=== PATIENT | male | born 1960 | race Caucasian/White ===

== ENCOUNTER → 2017-01-11 | Day surgery (SDC) | payer OTHER ==
[2017-01-10 11:24] VITALS: Ht 175.3 cm; Wt 118.2 kg
[~2017-01-11] VITALS: Ht 175.3 cm; Wt 118.2 kg
[~2017-01-11] MED LIST: ALBUAER2 INH; ARMO150T4 PO; ASTN; ATROPINE SULFATE 0.1 MG/ML 5ML SYR IV PRN; BUPIVACAINE 0.5 % 5 MG/1 ML PF 10ML VIAL ONE; CEFAZOLIN 1000MG/55 ML D5W IV SCH; CEFAZOLIN IV 2,000 MG/60 ML D5W IV ONE; EpHEDrine SULFATE INJ 50 MG/ML AMP IV PRN; FENTANYL CITRATE INJ 50 MCG/1 ML 2 ML VIAL IV PRN; FENTANYL CITRATE INJ 50 MCG/1 ML 2 ML VIAL ONE; FLUT0.15 NAE; HYDR-5688 PO; HYZ/50125 PO; IPRASOL4 INH; LACTATED RINGER'S 1000ML 1,000 ML IV SCH; LIDOCAINE HCL 1% 20 ML VIAL ONE; MIDAZOLAM HCL 1 MG/ML 2ML VIAL ONE; MOME100A INH; MONT1TAB3 PO; ONDANSETRON INJ 2 MG/ML 2 ML VIAL IV PRN; ONDANSETRON INJ 2 MG/ML 2 ML VIAL ONE; OXYCODONE/ACETAMINOPHEN 5-325 TAB PO PRN; PANT40TA PO; SODIUM CHLORIDE 0.9% 1000ML 1,000 ML IV SCH
--- NOTE | 2017-01-11 07:22 | History & Physical Bridge - [place] ---
H&P Re-Evaluation Bridge Note: I have examined the patient, reviewed the History & Physical and in the interval since the performance of the History & Physical I have noted the following changes of clinical significance: No changes noted
--- NOTE | 2017-01-11 08:07 | [facility] Post Operative Brief Note ---
Immediate Operative Summary Operative Date Jan 11, 2017. Pre-Operative Diagnosis Left Carpal Tunnel Syndrome Post-Operative Diagnosis Same Procedure(s) Performed Left Carpal Tunnel Release Surgeon Dr. Radha Braga Security Trainer Surgeon(s) Laila Beasley PA-C Estimated Blood Loss 0 Findings ABOVE Specimens None Anesthesia LOCAL IV SEDATION Complication(s) None Disposition
--- NOTE | 2017-01-11 08:09 | Anesthesia Progress Nt - [facility] ---
Anesthesia Post Op Note Date & Time Jan 11, 2017 at 08:09 Vital Signs Pain Intensity: 0 Vital Signs Past 12 Hours Date Time Temp Pulse Resp B/P Pulse Ox O2 Delivery O2 Flow Rate FiO2 01/11/17 06:57 36.6 68 16 152/87 95 Room Air Notes Mental Status: alert / awake / arousable, participated in evaluation Pt Amnestic to Procedure: Yes Nausea / Vomiting: adequately controlled Pain: adequately controlled Airway Patency, RR, SpO2: stable & adequate BP & HR: stable & adequate Hydration State: stable & adequate Anesthetic Complications: no major complications apparent
[2017-01-11 08:10] VITALS: TEMP 36.5
--- NOTE | 2017-01-11 08:11 | Discharge Instructions-SurgCtr ---
Discharge Instructions Date of Service Jan 11, 2017. Visit Reason for Visit: Left Carpal Tunnel Syndrome Discharge Discharge Diagnosis / Problem: SAME ABOVE Discharge Goals Goal(s): Decrease discomfort, Improve function Activity Recommendations Activity Limitations: as noted below Lifting Limitations: until after follow-up appointment Exercise/Sports Limitations: until after follow-up appointment Shower/Bathe: keep incision dry Anesthesia . Post Anesthesia Instructions: If you have had General Anesthesia or IV Sedation: * Do not drive today. * Resume driving when surgeon permits. * Do not make important decisions or sign legal documents today. * Call surgeon for: 1. Temperature elevations greater than 101 degrees F. 2. Uncontrollable pain. 3. Excessive bleeding. 4. Persistent nausea and vomiting. 5. Medication intolerance (nausea, vomiting or rash). * For nausea and vomiting use only clear liquids such as: tea, soda, bouillon until nausea subsides, then gradually increase diet as tolerated. * If you have any concerns or questions, call your surgeon's office. If physician is unavailable and it is an emergency, call 911 or go to the nearest emergency room. . Instructions / Follow-Up Instructions / Follow-Up MEDICATIONS: * Resume previous medications unless instructed otherwise by your surgeon. * Always take pain medication on a full stomach or with food to avoid upset stomach. * Do not drink alcohol or drive while taking narcotics. * Ibuprofen or Tylenol may be taken if narcotic not needed. SPECIAL CARE INSTRUCTIONS: __ None _X_ Keep extremity elevated and iced x 48 hours; apply ice 20-30 minutes 8-10 times/day. May remove at night. __ Sling __24 hrs/day __ Remove at night __ Shoulder Immobilizer __ 24 hrs/day __ Remove at night _X_ Dressing _X_ Maintain until seen in office, may shower with plastic over site __ Remove dressings in 24-48 hours and then may shower __ Cover incisions with band-aids after showering __ Do not remove steri-strips Call physician if chills or temperature rises above 102 degrees or pain unrelieved by prescribed pain medications at . . Diet Recommendations Home Diet: resume previous diet Procedures Procedures Performed: Left Carpal Tunnel Release Pending Studies Studies pending at discharge: no Medical Emergencies . Who to Call and When: Medical Emergencies: If at any time you feel your situation is an emergency, please call 911 immediately. . Non-Emergent Contact Non-Emergency issues call your: Primary Care Provider . . "Provider Documentation" section prepared by Rob Beasley.
[2017-01-11 08:34] VITALS: BP 138/89; PULSE 67; O2SAT 95
--- NOTE | 2017-01-11 08:36 | OPERATIVE REPORT ---
DATE OF OPERATION: 01/11/2017 PREOPERATIVE DIAGNOSIS: Left carpal tunnel syndrome. POSTOPERATIVE DIAGNOSIS: Same. PROCEDURE: Decompression median nerve release transverse carpal ligament, left wrist. SURGEON: Hesham Braga MD INTERNAL CONTROL SPECIALIST: Rob Beasley PA-C ANESTHESIOLOGIST: Raymond Reis MD ANESTHESIA: Local with IV sedation. DRAINS: None. COMPLICATIONS: None. CONDITION: The patient tolerated the procedure well and returned to recovery room in apparent satisfactory condition. INDICATIONS FOR SURGERY: Maverick is a 56-year-old male who has had increasing pain, numbness and tingling in the left hand consistent with the carpal tunnel syndrome. Went over treatment options and elected to go ahead and proceed with surgery. Procedure, expected outcomes and side effects were all explained in detail. DESCRIPTION OF PROCEDURE: The patient was taken to the OR at which time he was placed supine on the operating table. The left hand was prepped and draped in the usual sterile fashion for this surgery. The anticipated incision site was infiltrated with 1% Xylocaine. A forearm tourniquet was placed on the arm and tourniquet was placed up to 250 mmHg. Incision was made vertically over the transverse carpal tunnel ligament. Dissection was done down until the palmar fascia was identified and divided with a 15-blade. The transverse carpal ligament was identified and also divided with the 15-blade and upbiting scissors. A small portion of the forearm fascia was divided also. Electrocautery was used to control any areas of bleeding. The nerve was freed up from any scar tissue and adequately decompressed. The wound then was copiously irrigated. It was closed then with interrupted 4-0 nylon sutures. Marcaine without Epinephrine was placed in the skin edges. It was closed in a layered fashion. We placed a sterile dressing of Xeroform, 4 x 4, volar splint, and an Junior bandage. DISPOSITION: The patient was returned back to the recovery room in apparent satisfactory condition. I attest to the content of the Intraoperative Record and any orders documented therein. Any exceptio ns are noted below.
== END | disposition home or self-care (01) ==
LOC: X.SURG 06:36
PROVIDERS: ATTEND Orthopaedic Surgery
DX: G56.02 Carpal tunnel syndrome, left upper limb (principal); I10 Essential (primary) hypertension; J45.909 Unspecified asthma, uncomplicated

== ENCOUNTER 2017-09-12 13:06 | Inpatient (IN) | payer OTHER ==
[2017-09-12] VITALS (8 sets, daily range): BP systolic 146–150; BP diastolic 69–84; PULSE 74–102; TEMP 36.9–37.8; O2SAT 92–94; Ht 175.3 cm; Wt 116.6 kg
[~2017-09-12] VITALS: Ht 175.3 cm; Wt 116.6 kg
[~2017-09-12 13:06] MED LIST changes: -ATROPINE SULFATE 0.1 MG/ML 5ML SYR IV PRN; -BUPIVACAINE 0.5 % 5 MG/1 ML PF 10ML VIAL ONE; -CEFAZOLIN 1000MG/55 ML D5W IV SCH; -CEFAZOLIN IV 2,000 MG/60 ML D5W IV ONE; -EpHEDrine SULFATE INJ 50 MG/ML AMP IV PRN; -FENTANYL CITRATE INJ 50 MCG/1 ML 2 ML VIAL IV PRN; -FENTANYL CITRATE INJ 50 MCG/1 ML 2 ML VIAL ONE; -HYDR-5688 PO; -LACTATED RINGER'S 1000ML 1,000 ML IV SCH; -LIDOCAINE HCL 1% 20 ML VIAL ONE; -MIDAZOLAM HCL 1 MG/ML 2ML VIAL ONE; -ONDANSETRON INJ 2 MG/ML 2 ML VIAL IV PRN; -ONDANSETRON INJ 2 MG/ML 2 ML VIAL ONE; -OXYCODONE/ACETAMINOPHEN 5-325 TAB PO PRN; -SODIUM CHLORIDE 0.9% 1000ML 1,000 ML IV SCH
[2017-09-12] MEDS ORDERED: ACETAMINOPHEN 325 MG TAB PO PRN (13:30)
[2017-09-12] MEDS ORDERED: ONDANSETRON INJ 2 MG/ML 2 ML VIAL IV PRN (13:30)
[2017-09-12] MEDS ORDERED: POLYETHYLENE (MIRALAX) 17 GM PACK PO PRN (13:30)
[2017-09-12] MEDS ORDERED: PRD20 PO (14:08)
[2017-09-12] MEDS ORDERED: ALBUT/IPRATROP 3MG/0.5MG NEB 3 ML VIAL INH PRN (15:00)
[2017-09-12] MEDS: CEFTRIAXONE SOD INJ 1 GM in DEXTROSE 5% ADD-VANTAGE 50ML 50 ML IV SCH (15:10)
[2017-09-12] MEDS: SODIUM CHLORIDE 0.9% 1000ML 1,000 ML IV SCH (15:10)
--- NOTE | 2017-09-12 15:20 | History and Physical ---
History & Physical Date & Time of Service: Sep 12, 2017 at 14:10 Chief Complaint: Pneumonia Primary Care Physician: Hesham Wright M.D. History of Present Illness Source: patient, spouse, clinic records Pt is 57 y/o M with PMH asthma, ENRICO, HTN, thoracic aortic aneurysm presents as direct admission from [facility] pulmonology office -Dr Valle with c /o cough, SOB, pneumonia. Pt states 2 weeks ago started with rhinorrhea, nasal congestion and cough and was treated with Augmentin and prednisone 20mg daily. Pt states still symptomatic with cough worsening and 2 days ago seen and started on zithromax and prednisone 40mg x 5 days. Pt states last night started with tactile fever, CRUM, myalgias, arthralgias and decreased appetite. This am temp 101F. Cough productive clear. Deep breathing worsens cough and coughing causes tight sensation in chest, only with coughing. Feels SOB with exertion past couple of days. Did not have influenza vaccine this season. Reports co- workers with coughs and fevers also. He reports past 3 days having to use his duoneb nebulizer 4 times a day which is unusual for him. Denies N/V/D/C, dizziness, syncope, vision changes, neck pain,orthopnea, palpitations, choking, otalgia, abdominal pain, paresthesias, weakness, extremity weakness, extremity edema, rashes, urinary symptoms. In office today pt had CXR IMPRESSION: linear bibasilar airspace opacification, atelectasis vs infiltrate. Short interval f/u to document resolution suggested. CBC: WBC: 16.03, RBC: 5.31, HGB: 16.2, HCT: 48, NEUT: 89, LYMPH: 3.3 BMP: BUN: 13, CR: 1.0, GFR: >60, Na: 135, K: 3.8, Cl: 95, CO2: 25, anion gap: 15 , glucose: 140, Ca: 9.1 Rapid Influenza swab: +influenza A Pending blood cultures Past Medical/Surgical History Medical Problems: (1) Asthma Status: Chronic (2) Chronic fatigue syndrome Status: Chronic (3) History of thoracoabdominal aortic aneurysm (TAAA) Permanent Comment: hx thoracic aortic aneurysm - 4cm, stable Status: Chronic (4) HTN (hypertension) Status: Chronic (5) ENRICO (obstructive sleep apnea) Status: Chronic Surgical Problems: (1) H/O knee surgery Status: Chronic (2) History of dental surgery Status: Chronic (3) Hx of cholecystectomy Status: Resolved (4) Hx of LASIK Status: Chronic Family History Diabetes mellitus FH: COPD (chronic obstructive pulmonary disease) FH: heart disease Social History Smoking Status: Never Smoker Smokeless Tobacco Use: No Alcohol Use: 3 beers a week Drug Use: none Marital Status: Housing status: lives with significant other Multi-Drug Resistant Organisms History of MDRO: No Allergies Coded Allergies: Morphine (Verified Allergy, Mild, ITCHY, 01/11/17) Home Medications Scheduled Armodafinil (Nuvigil), 150 MG PO QAM Azelastine Hcl (Astelin Nasal [place]), 1 SPRAYS NA BID Fluticasone Propionate (Nasal) (Flonase Allergy Relief), 1 SPRAYS CHRIS DAILY Hctz/Losartan (Hyzaar 12.5MG/50MG), 1 TAB PO QAM Mometasone Furoate-Formoterol (Dulera 100/5 Mcg), 2 PUFFS INH BID Montelukast Sodium (Singulair), 10 MG PO HS Pantoprazole (Protonix), 40 MG PO QAM Prednisone (Prednisone), 2 TAB PO DAILY Scheduled PRN Albuterol (Ventolin), 2 PUFFS INH QID PRN for SOB/Wheezing Ipratropium-Albuterol (Duoneb), 1 TREATMENT INH Q4H PRN for Shortness of Breath Review of Systems Constitutional: + problem reported (see HPI), No weight loss Eyes: No worsening of vision, No eye pain, No redness, No discharge, No diplopia ENT: No unusual epistaxis Respiratory: + problem reported (see HPI), No hemoptysis Cardiovascular: No orthopnea, No PND, No edema, No claudication, No palpitations Abdomen: No pain, No nausea, No vomiting, No diarrhea, No constipation, No GI bleeding Musculoskeletal: + joint pain (see HPI) Genitourinary - Male: No hematuria, No dysuria, No urinary frequency, No urinary urgency Neurologic: No paralysis, No weakness, No numbness/tingling, No vertigo Psychiatric: No depression symptoms, No anxiety Endocrine: No excessive thirst, No excessive urination Hematologic / Lymphatic: No abnormal bleeding/bruising, No clotting problems Integumentary: No rash, No itch Physical Exam Vital Signs Date Time Temp Pulse Resp B/P (MAP) Pulse Ox O2 Delivery O2 Flow Rate FiO2 09/12/17 13:42 36.9 100 20 150/82 93 Room Air General Appearance: WD/WN, no apparent distress, + pertinent finding (mild ill appearance, non-toxic appearance) Head: normocephalic, atraumatic Eyes: normal inspection, sclerae normal ENT: hearing grossly normal, pharynx normal, + pertinent finding (slightly dry mucous membranes) Neck: supple, no JVD, trachea midline Respiratory/Chest: chest non-tender, no respiratory distress, no accessory muscle use, + decreased breath sounds (throughout, slight crackle noted at left base, frequent coughing througout lung exam. ) Cardiovascular: regular rate, rhythm, no murmur Abdomen/GI: normal bowel sounds, non tender, soft Extremities/Musculoskelatal: normal inspection, no calf tenderness, normal capillary refill, no pedal edema, normal range of motion, non-tender Neurologic/Psych: alert, normal mood/affect, oriented x 3 Skin: normal color, warm/dry, no rash Diagnostics Laboratory Results CBC: WBC: 16.03, RBC: 5.31, HGB: 16.2, HCT: 48, NEUT: 89, LYMPH: 3.3 BMP: BUN: 13, CR: 1.0, GFR: >60, Na: 135, K: 3.8, Cl: 95, CO2: 25, anion gap: 15 , glucose: 140, Ca: 9.1 Rapid Influenza swab: +influenza A Pending blood cultures Diagnostic Radiology CXR IMPRESSION: linear bibasilar airspace opacification, atelectasis vs infiltrate. Short interval f/u to document resolution suggested. EKG EKG: NSR, rate 97, no ST elevation noted Impression Assessment and Plan PNEUMONIA/INFLUENZA Pt has been having cough, congestion x 2 weeks treated out pt with Augmentin, then Zithromax past 2 days and prednisone. Fever, myalgias started last evening. Increased SOB and cough past several days. Pt with positive rapid influenza swab for A today in clinic. Pt with WBC: 16 today in clinic. CXR: bibasilar airspace opacification. -Pending blood cultures -MRSA swab -Duonebs -Rocephin IV, Doxycycline IV -supplemental O2 per protocol -Solu-medrol 40mg BID -Tamiflu -NSS 100ml/hr -Continue Dulera -Continue Singulair -Continue Flonase, azelastine -repeat cbc, prp in am -repeat CXR in am HTN continue losartan/HCTZ GERD -continue PPI SLEEP APNEA -CPAP HS per home settings DVT PROPHYLAXIS -lovenox SQ DISPOSITION -admit Tele -Full Code -Follows with Dr Wright for routine care Pt was seen with Dr Potts. See addendum Agree with above H and P. Briefly 57M with hx of ENRICO , HTN with ongoing symptoms since about 2 weeks of rhinorrhea nasal congestion and was treated by prednisone and Augmentin and then azithromycin but last night spiked temp and had myalgias and sob on exertion and went to see pulmonary today and cxr showed bibasilar opacities and influenza positive and was directly admitted. Currently hemodynamics stable. Has cough. Body aches.No chest pain. p/e Ge Not in distress Cvs s1 and s2 heard regular no murmurs Rs cta b/l bibasilar crackles present Abd benign Pivot End Polisher non focal Ext no edema a/p Sob Influenza A positive bibasilar pneumonia stated on Tamiflu iv Rocephin iv doxy fluids nebs and close monitor Asthma ex iv steroids and nebs abx as above Level of Care Telemetry Advanced Directives Existing Living Will: No Existing Power of Cue Selector: No Resuscitation Status FULL RESUSCITATION VTE Prophylaxis VTE Risk Assessment Done? Y/N: Yes Risk Level: Moderate Given or contraindicated: Enoxaparin (Lovenox)SQ Additional Copies To Hesham Wright M.D.
[2017-09-12 15:31] LABS: INR 1.1 (0.9-1.1); PARTIAL THROMBOPLASTIN RATIO 1.1; PROTHROMBIN TIME (PATIENT) 11.1 SECONDS (9.0-12.0)
[2017-09-12] MEDS: ALBUT/IPRATROP 3MG/0.5MG NEB 3 ML VIAL INH SCH ×2 (15:48→19:49)
[2017-09-12 16:53] LABS: CREATININE 1.3 mg/dl (0.60-1.40)
[2017-09-12] MEDS: ENOXAPARIN 40 MG/0.4 ML SYR SC SCH (18:00)
[2017-09-12] MEDS ORDERED: AZELASTINE HCL SCH (21:00)
[2017-09-12] MEDS ORDERED: MOMETASONE FUROATE FORMOTEROL INH SCH (21:00)
[2017-09-12] MEDS: DOXYCYCLINE IV 100 MG in DEXTROSE 5% 100ML 100 ML IV SCH (22:05)
[2017-09-12] MEDS: METHYLPREDNISOLONE IV 40 MG in SYRINGE 0 ML IV SCH (22:05)
[2017-09-12] MEDS: OSELTAMIVIR PHOSPHATE 75 MG CAP PO SCH (22:06)
[2017-09-12] MEDS: MONTELUKAST SOD 10 MG TAB PO SCH (22:10)
[2017-09-13] VITALS (13 sets, daily range): BP systolic 122–148; BP diastolic 56–86; PULSE 68–99; TEMP 36.5–38.1; O2SAT 90–96
[2017-09-13] MEDS: SODIUM CHLORIDE 0.9% 1000ML 1,000 ML IV SCH
[2017-09-13 05:29] LABS: BASO % 0.1 %; BASO ABS # 0.01 K/uL (0-0.2); COMPLETE YES; HEMATOCRIT 44.1 % (42-52); IG% 0.3 %; LYMPH % 7.3 %; LYMPH ABS # 0.86 K/uL (1.2-3.4); MEAN CELL VOLUME 91.1 fL (80-100); MEAN CORPUSCULAR HEMOGLOBIN 31.2 pg (25-34); MEAN CORPUSCULAR HGB CONC 34.2 g/dl (32-36); MEAN PLATELET VOLUME 10.4 fL (7.4-10.4); MONO % 2.5 %; NEUT % 89.8 %; PLATELET COUNT 167 K/uL (130-400); RED BLOOD COUNT 4.84 M/uL (4.7-6.1); WHITE BLOOD COUNT 11.73 K/uL (4.8-10.8)
[2017-09-13 06:00] LABS: BUN/CREATININE RATIO 14.3 (10-20); CALCIUM 8.4 mg/dl (8.5-10.1); CREATININE 1.17 mg/dl (0.60-1.40)
--- NOTE | 2017-09-13 07:39 | DIAGNOSTIC IMAGING REPORT ---
CHEST 2 VIEWS ROUTINE HISTORY: Short of breath. COMPARISON: Chest 01/04/2016. FINDINGS: Old, healed right-sided rib fractures. No pneumothorax. The heart is top normal in size. This remains unchanged. Low lung volumes. The right lung is clear. Trace left pleural effusion and patchy left basilar densities. Cholecystectomy. IMPRESSION: 1. Left lower lobe airspace opacity. This likely represents a pneumonia. Recommend follow-up to ensure complete resolution. 2. Trace left pleural effusion. Electronically signed by: Mike Vences M.D. 09/13/2017 7:37 AM Dictated Date/Time: 09/13/2017 7:36 AM
[2017-09-13] MEDS: ALBUT/IPRATROP 3MG/0.5MG NEB 3 ML VIAL INH SCH ×4 (07:41→19:57)
[2017-09-13] MEDS: METHYLPREDNISOLONE IV 40 MG in SYRINGE 0 ML IV SCH ×2 (08:17→19:59)
[2017-09-13] MEDS: LOSARTAN/HCTZ 50-12.5 EA TAB PO SCH (08:17)
[2017-09-13] MEDS: PANTOprazole SOD 40 MG TAB PO SCH (08:17)
[2017-09-13] MEDS: OSELTAMIVIR PHOSPHATE 75 MG CAP PO SCH ×2 (08:18→19:59)
[2017-09-13] MEDS: FLUTICASONE PROPIONATE NA SPR 16 GM BTL NAE SCH (08:20)
[2017-09-13] MEDS: DOXYCYCLINE IV 100 MG in DEXTROSE 5% 100ML 100 ML IV SCH ×2 (08:20→20:24)
--- NOTE | 2017-09-13 10:18 | Progress Note ---
Medicine Progress Note Date & Time of Visit: Sep 13, 2017 at 10:01. Subjective Pt was seen and examined Sitting in chair comfortable with no distress Pt said that he feels much better He said that he continue to have some SOB Last fever was at midnight Denies any chest pain, palpitation and dizziness Objective Last 8 Hrs Date Time Temp Pulse Resp B/P (MAP) Pulse Ox O2 Delivery O2 Flow Rate FiO2 09/13/17 08:00 93 Room Air 3.0 09/13/17 07:41 81 16 93 Room Air 09/13/17 07:14 36.6 68 20 138/86 (103) 96 Nasal Cannula 09/13/17 04:20 BiPAP 09/13/17 03:50 36.7 75 18 148/80 (102) 94 3.0 Physical Exam: General- No acute distress Head- atraumatic Eyes- PERRL, EOMI ENT- oropharynx clear Neck- supple, no JVD Lungs- coarse BS Heart- regular rhythm Abdomen- normal bowel sounds, soft Extremities- no pretibial edema, no calf tenderness Neuro- alert, oriented x 3; PERRL, EOMI; no facial palsy Skin- warm & dry Laboratory Results: Last 24 Hours Test 09/12/17 15:07 09/12/17 16:11 09/13/17 04:49 Prothrombin Time 11.1 SECONDS Prothromb Time International Ratio 1.1 Activated Partial Thromboplast Time 28.3 SECONDS Partial Thromboplastin Ratio 1.1 Creatinine 1.30 mg/dl 1.17 mg/dl Est Creatinine Clear Calc Drug Dose 78.6 ml/min 87.3 ml/min Estimated GFR () 70.2 79.7 Estimated GFR (Non- 60.6 68.8 White Blood Count 11.73 K/uL Red Blood Count 4.84 M/uL Hemoglobin 15.1 g/dL Hematocrit 44.1 % Mean Corpuscular Volume 91.1 fL Mean Corpuscular Hemoglobin 31.2 pg Mean Corpuscular Hemoglobin Concent 34.2 g/dl Platelet Count 167 K/uL Mean Platelet Volume 10.4 fL Neutrophils (%) (Auto) 89.8 % Lymphocytes (%) (Auto) 7.3 % Monocytes (%) (Auto) 2.5 % Eosinophils (%) (Auto) 0.0 % Basophils (%) (Auto) 0.1 % Neutrophils # (Auto) 10.54 K/uL Lymphocytes # (Auto) 0.86 K/uL Monocytes # (Auto) 0.29 K/uL Eosinophils # (Auto) 0.00 K/uL Basophils # (Auto) 0.01 K/uL RDW Standard Deviation 45.5 fL RDW Coefficient of Variation 13.7 % Immature Granulocyte % (Auto) 0.3 % Immature Granulocyte # (Auto) 0.03 K/uL Sodium Level 133 mmol/L Potassium Level 4.0 mmol/L Chloride Level 99 mmol/L Carbon Dioxide Level 28 mmol/L Anion Gap 6.0 mmol/L Blood Urea Nitrogen 17 mg/dl BUN/Creatinine Ratio 14.3 Random Glucose 232 mg/dl Calcium Level 8.4 mg/dl Date/Time Source Procedure Growth Status 09/12/17 23:30 Nasal MRSA DNA Surveillance Screen - Final Specimen Negative for MRSA by DNA Probe Complete Assessment & Plan INFLUENZA Present with flu like symptoms such as cough/congestion fever and myalgias associated with SOB. Completed outpatient course of Augmentin, then was starting on Zithromax and prednisone. Positive rapid influenza A CXR showed left lower lobe airspace opacity Blood cx did not collect before abx Elevated WBC Last fever was at midnight Continue Tamiflu Pneumonia CXR showed left lower lobe airspace opacity On Rocephin IV and Doxycycline IV Continue supplement oxygen and Solu-medrol 40mg BID -Tamiflu Monitor CBC HTN continue losartan/HCTZ GERD -continue PPI SLEEP APNEA -CPAP HS per home settings DVT PROPHYLAXIS Lovenox SQ DISPOSITION Follows with Dr Wright for routine care Current Inpatient Medications: Current Inpatient Medications Medications (Trade) Dose Ordered Sig/Madi Route Start Time Stop Time Status Last Admin Dose Admin Acetaminophen (Tylenol Tab) 650 mg Q4H PRN PO 09/12/17 13:30 10/12/17 13:29 09/13/17 00:26 650 MG Ondansetron HCl (Zofran Inj) 4 mg Q6H PRN IV 09/12/17 13:30 10/12/17 13:29 Polyethylene (Miralax Powder Packet) 17 gm DAILY PRN PO 09/12/17 13:30 10/12/17 13:29 Albuterol/ Ipratropium (Duoneb) 3 ml QIDR INH 09/12/17 16:00 10/12/17 15:59 09/13/17 07:41 3 ML Ceftriaxone Sodium 1 gm/ Dextrose 50 ml @ 100 mls/hr Q24H IV 09/12/17 15:00 09/19/17 14:59 09/12/17 15:10 100 MLS/HR Doxycycline Hyclate 100 mg/ Dextrose 110 ml @ 50 mls/hr BID IV 09/12/17 21:00 09/19/17 20:59 09/13/17 08:20 50 MLS/HR Oseltamivir Phosphate (Tamiflu Cap) 75 mg BID PO 09/12/17 21:00 09/17/17 20:59 09/13/17 08:18 75 MG Enoxaparin Sodium (Lovenox Inj) 40 mg Q24H SC 09/12/17 18:00 10/12/17 17:59 09/12/17 18:00 40 MG Fluticasone Propionate (Flonase Nasal [place]) 1 sprays DAILY CHRIS 09/13/17 09:00 10/13/17 08:59 09/13/17 08:20 1 SPRAYS HCTZ/Losartan Potassium (Hyzaar 50-12.5 Tab) 1 tab QAM PO 09/13/17 09:00 10/13/17 08:59 09/13/17 08:17 1 TAB Montelukast Sodium (Singulair Tab) 10 mg HS PO 09/12/17 21:00 10/12/17 20:59 09/12/17 22:10 10 MG Pantoprazole Sodium (Protonix Tab) 40 mg QAM PO 09/13/17 09:00 10/13/17 08:59 09/13/17 08:17 40 MG Methylprednisolone Sodium Succinate 40 mg/Syringe 0.64 ml @ 1.5 mls/min Q12H IV 09/12/17 21:00 10/12/17 20:59 09/13/17 08:17 1.5 MLS/MIN Albuterol/ Ipratropium (Duoneb) 3 ml Q2H PRN INH 09/12/17 15:00 10/12/17 14:59 Miscellaneous Information (Order Awaiting Action) 1 ea BID N/A 09/12/17 21:00 10/12/17 20:59 Miscellaneous Information (Order Awaiting Action) 1 ea BID N/A 09/12/17 21:00 10/12/17 20:59
[2017-09-13] MEDS: CEFTRIAXONE SOD INJ 1 GM in DEXTROSE 5% ADD-VANTAGE 50ML 50 ML IV SCH (16:42)
[2017-09-13] MEDS: ENOXAPARIN 40 MG/0.4 ML SYR SC SCH (16:46)
[2017-09-13] MEDS: MONTELUKAST SOD 10 MG TAB PO SCH (20:00)
[2017-09-14] VITALS (8 sets, daily range): BP systolic 146–166; BP diastolic 88–97; PULSE 77–94; TEMP 36.5–36.9; O2SAT 91–94
[2017-09-14 06:36] LABS: HEMATOCRIT 45.9 % (42-52); MEAN CELL VOLUME 89.1 fL (80-100); MEAN CORPUSCULAR HEMOGLOBIN 31.5 pg (25-34); MEAN CORPUSCULAR HGB CONC 35.3 g/dl (32-36); MEAN PLATELET VOLUME 10.3 fL (7.4-10.4); PLATELET COUNT 204 K/uL (130-400); RED BLOOD COUNT 5.15 M/uL (4.7-6.1); WHITE BLOOD COUNT 18.59 K/uL (4.8-10.8)
[2017-09-14] MEDS: ALBUT/IPRATROP 3MG/0.5MG NEB 3 ML VIAL INH SCH ×2 (07:03→11:09)
[2017-09-14] MEDS: DOXYCYCLINE IV 100 MG in DEXTROSE 5% 100ML 100 ML IV SCH (08:08)
[2017-09-14] MEDS: METHYLPREDNISOLONE IV 40 MG in SYRINGE 0 ML IV SCH (08:09)
[2017-09-14] MEDS: PANTOprazole SOD 40 MG TAB PO SCH (08:09)
[2017-09-14] MEDS: OSELTAMIVIR PHOSPHATE 75 MG CAP PO SCH (08:10)
[2017-09-14] MEDS: LOSARTAN/HCTZ 50-12.5 EA TAB PO SCH (08:10)
[2017-09-14] MEDS: FLUTICASONE PROPIONATE NA SPR 16 GM BTL NAE SCH (08:10)
--- NOTE | 2017-09-14 12:07 | Progress Note ---
Medicine Progress Note Date & Time of Visit: Sep 14, 2017 at 11:50. Subjective Pt was seen and examined Sitting in bed comfortable with no distress reading newspaper Pt said that he feels much better He said that he is ready to go home Denies any chest pain, palpitation, dizziness and SOB Objective Last 8 Hrs Date Time Temp Pulse Resp B/P (MAP) Pulse Ox O2 Delivery O2 Flow Rate FiO2 09/14/17 11:09 77 16 94 Room Air 09/14/17 10:43 36.9 81 18 146/95 (112) 93 Room Air 09/14/17 08:00 93 Room Air 09/14/17 07:19 36.5 94 18 166/97 (120) 91 09/14/17 07:04 77 16 92 Room Air 09/14/17 04:00 BiPAP 09/14/17 03:54 36.9 89 18 153/88 (109) 91 Room Air Physical Exam: General- No acute distress Head- atraumatic Eyes- PERRL, EOMI ENT- oropharynx clear Neck- supple, no JVD Lungs- No wheezing Heart- regular rhythm Abdomen- normal bowel sounds, soft Extremities- no pretibial edema, no calf tenderness Neuro- alert, oriented x 3; PERRL, EOMI; no facial palsy Skin- warm & dry Laboratory Results: Last 24 Hours Test 09/14/17 06:17 White Blood Count 18.59 K/uL Red Blood Count 5.15 M/uL Hemoglobin 16.2 g/dL Hematocrit 45.9 % Mean Corpuscular Volume 89.1 fL Mean Corpuscular Hemoglobin 31.5 pg Mean Corpuscular Hemoglobin Concent 35.3 g/dl RDW Standard Deviation 43.3 fL RDW Coefficient of Variation 13.2 % Platelet Count 204 K/uL Mean Platelet Volume 10.3 fL Assessment & Plan INFLUENZA Present with flu like symptoms such as cough/congestion fever and myalgias associated with SOB. Completed outpatient course of Augmentin, then was starting on Zithromax and prednisone. Positive rapid influenza A CXR showed left lower lobe airspace opacity Has been afebrile for over 30hrs Blood cx pending Since pt wants to go home, will follow up on blood cx Elevated WBC Continue Tamiflu to complete 5 days course Pneumonia CXR showed left lower lobe airspace opacity On Rocephin IV and Doxycycline IV Will change solumedrol to Prednisone oral Will discharge on doxycycline Continue Tamiflu Monitor CBC HTN continue losartan/HCTZ GERD continue PPI SLEEP APNEA -CPAP HS per home settings DVT PROPHYLAXIS Lovenox SQ DISPOSITION Follow up with Dr Wright on 09/20 @ 2:25 pm Current Inpatient Medications: Current Inpatient Medications Medications (Trade) Dose Ordered Sig/Madi Route Start Time Stop Time Status Last Admin Dose Admin Acetaminophen (Tylenol Tab) 650 mg Q4H PRN PO 09/12/17 13:30 10/12/17 13:29 09/13/17 00:26 650 MG Ondansetron HCl (Zofran Inj) 4 mg Q6H PRN IV 09/12/17 13:30 10/12/17 13:29 Polyethylene (Miralax Powder Packet) 17 gm DAILY PRN PO 09/12/17 13:30 10/12/17 13:29 Albuterol/ Ipratropium (Duoneb) 3 ml QIDR INH 09/12/17 16:00 10/12/17 15:59 09/14/17 11:09 3 ML Ceftriaxone Sodium 1 gm/ Dextrose 50 ml @ 100 mls/hr Q24H IV 09/12/17 15:00 09/19/17 14:59 09/13/17 16:42 100 MLS/HR Oseltamivir Phosphate (Tamiflu Cap) 75 mg BID PO 09/12/17 21:00 09/17/17 20:59 09/14/17 08:10 75 MG Enoxaparin Sodium (Lovenox Inj) 40 mg Q24H SC 09/12/17 18:00 10/12/17 17:59 09/13/17 16:46 40 MG Fluticasone Propionate (Flonase Nasal [place]) 1 sprays DAILY CHRIS 09/13/17 09:00 10/13/17 08:59 09/13/17 08:20 1 SPRAYS HCTZ/Losartan Potassium (Hyzaar 50-12.5 Tab) 1 tab QAM PO 09/13/17 09:00 10/13/17 08:59 09/14/17 08:10 1 TAB Montelukast Sodium (Singulair Tab) 10 mg HS PO 09/12/17 21:00 10/12/17 20:59 09/13/17 20:00 10 MG Pantoprazole Sodium (Protonix Tab) 40 mg QAM PO 09/13/17 09:00 10/13/17 08:59 09/14/17 08:09 40 MG Methylprednisolone Sodium Succinate 40 mg/Syringe 0.64 ml @ 1.5 mls/min Q12H IV 09/12/17 21:00 10/12/17 20:59 09/14/17 08:09 1.5 MLS/MIN Albuterol/ Ipratropium (Duoneb) 3 ml Q2H PRN INH 09/12/17 15:00 10/12/17 14:59 Miscellaneous Information (Order Awaiting Action) 1 ea BID N/A 09/12/17 21:00 10/12/17 20:59 09/13/17 19:58 1 EA Miscellaneous Information (Order Awaiting Action) 1 ea BID N/A 09/12/17 21:00 10/12/17 20:59 09/13/17 19:58 1 EA Doxycycline Hyclate (Vibramycin Cap) 100 mg BID PO 09/14/17 21:00 09/20/17 20:59
[2017-09-14] MEDS ORDERED: PRED10TA PO (12:16)
[2017-09-14] MEDS ORDERED: TMF75 PO (12:16)
[2017-09-14] MEDS ORDERED: DXY100 PO (12:16)
--- NOTE | 2017-09-14 12:25 | Discharge Instructions ---
Discharge Instructions Date of Service Sep 14, 2017. Admission Reason for Admission: Pneumonia Discharge Discharge Diagnosis / Problem: Influenza/Pneumonia/HTN/Sleep apnea Discharge Goals Goal(s): Decrease discomfort, Improve function, Improve disease control Activity Recommendations Activity Limitations: resume your previous activity (as tolerated) . Instructions / Follow-Up Instructions / Follow-Up Follow up with primary care provider Dr. Wright on 09/20 @ 2:25 pm Complete course of antibiotic Continue Tamiflu for 3 more days Complete prednisone taper Will call you if your blood culture positive for any bacteria? or your physician will discuss the result with you Seek medical attention if you develop any fever. Current Hospital Diet Patient's current hospital diet: AHA Diet (Heart Healthy) Discharge Diet Recommended Diet: AHA Diet (Heart Healthy) Pending Studies Studies pending at discharge: yes List of pending studies: Blood culture Medical Emergencies . Who to Call and When: Medical Emergencies: If at any time you feel your situation is an emergency, please call 911 immediately. . Non-Emergent Contact Non-Emergency issues call your: Primary Care Provider Call Non-Emergent contact if: you have a fever, you have any medication questions . . "Provider Documentation" section prepared by Yaquelin Venegas. . VTE Core Measure Inpt VTE Proph given/why not?: Enoxaparin (Lovenox)SQ
[2017-09-14] MEDS ORDERED: DOXYCYCLINE HYCLATE 100 MG CAP PO SCH (21:00)
--- NOTE | 2017-09-15 19:57 | Discharge Summary ---
Discharge Summary Date of Service Sep 15, 2017. Discharge Summary Admission Date: Sep 12, 2017 at 13:06 Discharge Date: Sep 14, 2017 Discharge Disposition: Home Principal Diagnosis: Influenza/Pneumonia Secondary Diagnoses/Problems: HTN Sleep apnea GERD Procedures: CHEST 2 VIEWS ROUTINE HISTORY: Short of breath. COMPARISON: Chest 01/04/2016. FINDINGS: Old, healed right-sided rib fractures. No pneumothorax. The heart is top normal in size. This remains unchanged. Low lung volumes. The right lung is clear. Trace left pleural effusion and patchy left basilar densities. Cholecystectomy. IMPRESSION: 1. Left lower lobe airspace opacity. This likely represents a pneumonia. Recommend follow-up to ensure complete resolution. 2. Trace left pleural effusion. Electronically signed by: Mike Vences M.D. 09/13/2017 7:37 AM Dictated Date/Time: 09/13/2017 7:36 AM Medication Reconciliation New Medications: Doxycycline Hyclate (Doxycycline Hyclate) 100 Mg Cap 100 MG PO BID for 5 Days, #10 CAP Oseltamivir Phosphate (Tamiflu) 75 Mg Cap 75 MG PO BID for 3 Days, #6 CAP Changed Medications: Prednisone Tab (Prednisone) 10 Mg Tab 10 MG PO UD for 7 Days, TAB (Changed from: Prednisone 20 Mg Tab 2 Tab PO DAILY 5 Days ) Take 40mg for 2 days, then 20 mg for 3 days, then 10mg for 2 days Continued Medications: Albuterol (Ventolin) Inh 2 PUFFS INH QID PRN for SOB/Wheezing for 5 Days, INHALER Armodafinil (Nuvigil) 150 Mg Tab 150 MG PO QAM Azelastine Hcl (Astelin Nasal [place]) 200 Sprays/30 Ml [place] 1 SPRAYS NA BID Fluticasone Propionate (Nasal) (Flonase Allergy Relief) 50 Mcg/Act Spr 1 SPRAYS CHRIS DAILY Hctz/Losartan (Hyzaar 12.5MG/50MG) Tab 1 TAB PO QAM, 0 Refills Ipratropium-Albuterol (Duoneb) 3 Ml Nebu 1 TREATMENT INH Q4H PRN for Shortness of Breath, INHA Mometasone Furoate-Formoterol (Dulera 100/5 Mcg) 1 Aer Aer 2 PUFFS INH BID, 5 Refills Montelukast Sodium (Singulair) 10 Mg Tab 10 MG PO HS, TAB Pantoprazole (Protonix) 40 Mg Tab 40 MG PO QAM, #30 TAB Admission Information HPI (per Admitting provider): Pt is 57 y/o M with PMH asthma, ENRICO, HTN, thoracic aortic aneurysm presents as direct admission from [facility] pulmonology office -Dr Valle with c /o cough, SOB, pneumonia. Pt states 2 weeks ago started with rhinorrhea, nasal congestion and cough and was treated with Augmentin and prednisone 20mg daily. Pt states still symptomatic with cough worsening and 2 days ago seen and started on zithromax and prednisone 40mg x 5 days. Pt states last night started with tactile fever, CRUM, myalgias, arthralgias and decreased appetite. This am temp 101F. Cough productive clear. Deep breathing worsens cough and coughing causes tight sensation in chest, only with coughing. Feels SOB with exertion past couple of days. Did not have influenza vaccine this season. Reports co- workers with coughs and fevers also. He reports past 3 days having to use his duoneb nebulizer 4 times a day which is unusual for him. Denies N/V/D/C, dizziness, syncope, vision changes, neck pain,orthopnea, palpitations, choking, otalgia, abdominal pain, paresthesias, weakness, extremity weakness, extremity edema, rashes, urinary symptoms. In office today pt had CXR IMPRESSION: linear bibasilar airspace opacification, atelectasis vs infiltrate. Short interval f/u to document resolution suggested. CBC: WBC: 16.03, RBC: 5.31, HGB: 16.2, HCT: 48, NEUT: 89, LYMPH: 3.3 BMP: BUN: 13, CR: 1.0, GFR: >60, Na: 135, K: 3.8, Cl: 95, CO2: 25, anion gap: 15 , glucose: 140, Ca: 9.1 Rapid Influenza swab: +influenza A Pending blood cultures Physical Exam (per Admitting): General Appearance: WD/WN, no apparent distress, + pertinent finding Head: normocephalic, atraumatic Eyes: normal inspection, sclerae normal ENT: hearing grossly normal, pharynx normal, + pertinent finding Neck: supple, no JVD, trachea midline Respiratory/Chest: chest non-tender, no respiratory distress, no accessory muscle use, + decreased breath sounds Cardiovascular: regular rate, rhythm, no murmur Abdomen/GI: normal bowel sounds, non tender, soft Extremities/Musculoskelatal: normal inspection, no calf tenderness, normal capillary refill, no pedal edema, normal range of motion, non-tender Neurologic/Psych: alert, normal mood/affect, oriented x 3 Skin: normal color, warm/dry, no rash Hospital Course INFLUENZA Present with flu like symptoms such as cough/congestion fever and myalgias associated with SOB. Completed outpatient course of Augmentin, then was starting on Zithromax and prednisone. Positive rapid influenza A CXR showed left lower lobe airspace opacity Has been afebrile for over 30hrs Blood cx pending Since pt wants to go home, will follow up on blood cx Elevated WBC Continue Tamiflu to complete 5 days course Pneumonia CXR showed left lower lobe airspace opacity On Rocephin IV and Doxycycline IV Will change solumedrol to Prednisone oral Will discharge on doxycycline Continue Tamiflu Monitor CBC HTN continue losartan/HCTZ GERD continue PPI SLEEP APNEA -CPAP HS per home settings DVT PROPHYLAXIS Lovenox SQ DISPOSITION Follow up with Dr Wright on 09/20 @ 2:25 pm Total time spent on discharge = 35 minutes This includes examination of the patient, discharge planning, medication reconciliation, and communication with other providers. Discharge Instructions Discharge Instructions Date of Service Sep 14, 2017. Admission Reason for Admission: Pneumonia Discharge Discharge Diagnosis / Problem: Influenza/Pneumonia/HTN/Sleep apnea Discharge Goals Goal(s): Decrease discomfort, Improve function, Improve disease control Activity Recommendations Activity Limitations: resume your previous activity (as tolerated) . Instructions / Follow-Up Instructions / Follow-Up Follow up with primary care provider Dr. Wright on 09/20 @ 2:25 pm Complete course of antibiotic Continue Tamiflu for 3 more days Complete prednisone taper Will call you if your blood culture positive for any bacteria? or your physician will discuss the result with you Seek medical attention if you develop any fever. Current Hospital Diet Patient's current hospital diet: AHA Diet (Heart Healthy) Discharge Diet Recommended Diet: AHA Diet (Heart Healthy) Pending Studies Studies pending at discharge: yes List of pending studies: Blood culture Medical Emergencies . Who to Call and When: Medical Emergencies: If at any time you feel your situation is an emergency, please call 911 immediately. . Non-Emergent Contact Non-Emergency issues call your: Primary Care Provider Call Non-Emergent contact if: you have a fever, you have any medication questions . . "Provider Documentation" section prepared by Yaquelin Venegas. . VTE Core Measure Inpt VTE Proph given/why not?: Enoxaparin (Lovenox)SQ Additional Copies To Hesham Wright M.D.
== END 2017-09-14 13:34 | disposition home or self-care (01) | DRG 194 ==
LOC: C.2T 13:06 → C.2E 13:59
PROVIDERS: ADMIT Internal Medicine; ATTEND Internal Medicine
DX: J10.00 Influenza due to other identified influenza virus with unspecified type of pneumonia (principal); J45.901 Unspecified asthma with (acute) exacerbation; J18.9 Pneumonia, unspecified organism; I71.6 Thoracoabdominal aortic aneurysm, without rupture; I10 Essential (primary) hypertension; G47.33 Obstructive sleep apnea (adult) (pediatric); Z83.3 Family history of diabetes mellitus; K21.9 Gastro-esophageal reflux disease without esophagitis